=== PATIENT | male | born 1950 | race Caucasian/White ===

== ENCOUNTER → 2017-02-06 | Outpatient (CLI) | payer MEDICARE, OTHER ==
[~2017-02-06] MED LIST: AC325T PO; ALBU8.5H2 INH; ASPI-9 PO; CEFD300C PO; DICL18CA PO; DOXY100T41 PO; DUONEB 0.5 MG-33 ML IH; FLUT12AE4 INH; LISI1TAB10 PO; METF500T4 PO; NEB; NICO1PAT TD; NICO2GUM BC; PRED10TA PO; PRED5POW6 MC; TIOT18CA IH; TRIA15CR TP
--- NOTE | 2017-02-06 16:27 | Diagnostic Imaging Report ---
INDICATION: Neck pain. FINDINGS: Three views show good alignment of vertebral bodies. Body heights are well-maintained. Mild narrowing of disc spaces noted at C4-C7. Rather large osteophytes are noted anteriorly bridging the disc spaces, most prominent at the C6-C7 level. Facets are in good alignment. The atlantoaxial joint appears normal. There are no fractures. There is noted some calcification within the carotid arteries bilaterally. IMPRESSION: Degenerative cervical disc disease with rather large bony bridging osteophytes anteriorly most prominent at C6-C7. Dictated by: Dictated on workstation # [id number]
--- NOTE | 2017-02-06 16:28 | Diagnostic Imaging Report ---
INDICATION: Back pain. FINDINGS: Thoracic spine shows good alignment. Body heights are well maintained with no compression fractures. Mild narrowing of the disc space is noted throughout with anterior hypertrophic bony lipping. Pedicles appear intact. No paraspinal masses. 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 Dictated by: Dictated on workstation # [id number]
== END ==
LOC: RAD 11:33
PROVIDERS: ATTEND Family Medicine
DX: M54.2 Cervicalgia (principal); M54.6 Pain in thoracic spine; M25.78 Osteophyte, vertebrae; M47.894 Other spondylosis, thoracic region
CPT/HCPCS: 72040; 72072

== ENCOUNTER → 2017-02-27 | Outpatient (REF) | LOC: CLAB.HERRA 09:55 | PROVIDERS: ATTEND Family Medicine | DX: Z01.812 Encounter for preprocedural laboratory examination (principal) | CPT/HCPCS: 85610 ==